=== PATIENT | female | born 1985 | race Caucasian/White ===

== ENCOUNTER 2020-08-10 22:42 | Emergency (ER) | payer OTHER ==
[~2020-08-10 22:42] MED LIST: FLEXERIL 10 MG10 MG PO; MEDROL4 MG PO
[2020-08-10] MEDS ORDERED: BACTRIM DS TAB1 EACH PO (23:51)
[2020-08-10] MEDS ORDERED: HYDROCODON-ACE1 EAC4 PO (23:51)
== END 2020-08-11 00:07 | disposition home or self-care (01) ==
LOC: ER1 22:42
DX: N75.0 Cyst of Bartholin's gland (principal); F17.200 Nicotine dependence, unspecified, uncomplicated
CPT/HCPCS: 99283